=== PATIENT | male | born 1990 | race Caucasian/White ===

== ENCOUNTER 2018-09-22 10:13 | Emergency (ER) | payer SELFPAY ==
--- NOTE | 2018-09-22 12:30 | ER ---
Nurse's Notes [facility] Name: Yoni Collazo Age: 28 yrs Sex: Male : 1990 Arrival Date: 09/22/2018 Time: 10:19 Bed 9 Private MD: None, None Diagnosis: Hordeolum (externum) (internum) of eyelid Presentation: 09/22 10:29 Presenting complaint: Patient states: Reports right eye swelling and discomfort that aj started last night. Patient reports waking this morning with "crust" on eyelid. Denied injury or trauma. Transition of care: patient was not received from another setting of care. Onset of symptoms was September 21, 2018. Risk Assessment: Do you want to hurt yourself or someone else? Patient reports no desire to harm self or others. Initial Sepsis Screen: Does the patient meet any 2 criteria? No. Patient's initial sepsis screen is negative. Does the patient have a suspected source of infection? No. Patient's initial sepsis screen is negative. Care prior to arrival: None. 10:29 Method Of Arrival: Ambulatory 10:29 Acuity: TAVARES 4 Triage Assessment: 10:30 General: Appears in no apparent distress. comfortable, Behavior is calm, cooperative, aj appropriate for age. Pain: Complains of pain in right eye. EENT: Sclera/Cornea are reddened in outer aspect of conjuctiva of right eye Reports pain in right eye. Neuro: Level of Consciousness is awake, alert, obeys commands, Oriented to person, place, time, situation, Appropriate for age. Respiratory: Airway is patent Respiratory effort is even, unlabored, Respiratory pattern is regular, symmetrical. Derm: Skin is intact, is healthy with good turgor, Skin is pink, warm \\T\\ dry. normal. Historical: - Allergies: 10:30 No Known Allergies; aj - Home Meds: 10:30 None [Active]; aj - PMHx: 10:30 None; aj - PSHx: 10:30 None; aj - Immunization history:: Adult Immunizations up to date. - Social history:: Smoking status: Patient uses tobacco products, smokes one pack cigarettes per day. - Ebola Screening: : Patient negative for fever greater than or equal to 101.5 degrees Fahrenheit, and additional compatible Ebola Virus Disease symptoms Patient denies exposure to infectious person Patient denies travel to an Ebola-affected area in the 21 days before illness onset No symptoms or risks identified at this time. Screenin:49 Abuse screen: Denies threats or abuse. Denies injuries from another. Nutritional iw screening: No deficits noted. Tuberculosis screening: No symptoms or risk factors identified. Fall Risk None identified. Assessment: 11:00 General: Appears in no apparent distress. Behavior is calm, cooperative. Neuro: Level iw of Consciousness is awake, alert, obeys commands, Oriented to person, place, time, situation, Moves all extremities. Full function. Cardiovascular: Capillary refill < 3 seconds in bilateral fingers Patient's skin is warm and dry. Respiratory: Respiratory effort is even, unlabored, Respiratory pattern is regular, symmetrical. EENT: Eyes Lid(s) w/ stye noted right upper eyelid. Derm: Skin is intact, is healthy with good turgor. Musculoskeletal: Range of motion: intact in all extremities. Vital Signs: 10:30 BP 106 / 59; Pulse 89; Resp 17; Temp 98.0(O); Pulse Ox 99% on R/A; Weight 58.97 kg; aj Height 5 ft. 8 in. (172.72 cm) (R); 10:30 Body Mass Index 19.77 (58.97 kg, 172.72 cm) aj ED Course: 10:19 Patient arrived in ED. mr 10:19 None, None is Private Physician. mr 10:30 Triage completed. aj 10:30 Arm band placed on left wrist. Patient placed in waiting room, Patient notified of wait aj time. 11:00 Patient has correct armband on for positive identification. iw 12:05 Debi Martínez, MATTIE is Primary Nurse. iw 12:15 Booker Rajput PA is PHCP. jmm 12:15 Vidal Napoles MD is Attending Physician. jmm 12:29 Luis Wilkinson MD is Referral Physician. m 12:40 No provider procedures requiring assistance completed. Patient did not have IV access iw during this emergency room visit. Administered Medications: No medications were administered Outcome: 12:29 Discharge ordered by . jmm 12:40 Discharged to home ambulatory, with family. iw 12:40 Condition: good 12:40 Discharge instructions given to patient, family, Instructed on discharge instructions, follow up and referral plans. medication usage, Demonstrated understanding of instructions, follow-up care, medications, Prescriptions given X 1. 12:41 Patient left the ED. iw Signatures: Aria Terrell RN RN aj Mickail, Joel, PA PA jmm Rivera, Mary mr Williams, Irene, RN RN iw
--- NOTE | 2018-09-22 12:31 | EDPHYS ---
Physician Documentation [facility] Name: Yoni Collazo Age: 28 yrs Sex: Male : 1990 Arrival Date: 09/22/2018 Time: 10:19 Bed 9 Private MD: None, None ED Physician Vidal Napoles HPI: 09/22 12:27 This 28 yrs old Male presents to ER via Ambulatory with complaints of Eye jmm Swelling. 12:27 to the right eye. Onset: The symptoms/episode began/occurred gradually. This is a 28 jmm year old male with no chronic medical conditions that presents to the ED with right eyelid swelling beginning yesterday. Denies change in vision. Denies fever. Historical: - Allergies: 10:30 No Known Allergies; aj - Home Meds: 10:30 None [Active]; aj - PMHx: 10:30 None; aj - PSHx: 10:30 None; aj - Immunization history:: Adult Immunizations up to date. - Social history:: Smoking status: Patient uses tobacco products, smokes one pack cigarettes per day. - Ebola Screening: : Patient negative for fever greater than or equal to 101.5 degrees Fahrenheit, and additional compatible Ebola Virus Disease symptoms Patient denies exposure to infectious person Patient denies travel to an Ebola-affected area in the 21 days before illness onset No symptoms or risks identified at this time. ROS: 12:27 Constitutional: Negative for fever, chills, and weight loss. jmm 12:27 Cardiovascular: Negative for chest pain, palpitations, and edema, Respiratory: Negative for shortness of breath, cough, wheezing, and pleuritic chest pain. 12:27 Eyes: Positive for redness, swelling. 12:27 All other systems are negative. Exam: 12:27 Constitutional: This is a well developed, well nourished patient who is awake, alert, jmm and in no acute distress. Head/Face: atraumatic. 12:27 Chest/axilla: Normal chest wall appearance and motion. Cardiovascular: Regular rate and rhythm. No edema appreciated Respiratory: Normal respirations, no respiratory distress appreciated Back: Normal ROM Skin: General appearance color normal MS/ Extremity: Moves all extremities, no obvious deformities appreciated, no edema noted to the lower extremities Neuro: Awake and alert, normal gait Psych: Behavior is normal, Mood is normal, Patient is cooperative and pleasant 12:27 Eyes: Extraocular movements: intact throughout, Conjunctiva: normal, Anterior chamber: normal, no hyphema, Lids and lashes: edema, of the right eye, erythema, stye, seen on the right lid. Vital Signs: 10:30 BP 106 / 59; Pulse 89; Resp 17; Temp 98.0(O); Pulse Ox 99% on R/A; Weight 58.97 kg; aj Height 5 ft. 8 in. (172.72 cm) (R); 10:30 Body Mass Index 19.77 (58.97 kg, 172.72 cm) aj MDM: 12:26 Patient medically screened. [facility] 12:27 Data reviewed: vital signs, nurses notes. Data interpreted: Pulse oximetry: on room air jm is 99 %. Interpretation: normal. Counseling: I had a detailed discussion with the patient and/or guardian regarding: the historical points, exam findings, and any diagnostic results supporting the discharge/admit diagnosis, the need for outpatient follow up, to return to the emergency department if symptoms worsen or persist or if there are any questions or concerns that arise at home. Administered Medications: No medications were administered Disposition: 13:21 Co-signature as Attending Physician, Vidal Napoles MD I agree with the assessment and kdr plan of care. Disposition: 09/22/18 12:29 Discharged to Home. Impression: Hordeolum (externum) (internum) of eyelid. - Condition is Stable. - Discharge Instructions: Stye. - Prescriptions for Erythromycin 5 mg/gram (0.5 %) Ophthalmic Ointment - apply 1 centimeter by OPHTHALMIC route 2-3 times daily for 7 days; 1 tube. - Medication Reconciliation Form, Thank You Letter, Antibiotic Education, Prescription Opioid Use form. - Follow up: Private Physician; When: 2 - 3 days; Reason: Recheck today's complaints, Continuance of care, Re-evaluation by your physician. Follow up: Luis Wilkinson MD; When: 1 - 2 days; Reason: Recheck today's complaints, Continuance of care, Re-evaluation by your physician. Signatures: Aria Terrell RN RN aj Rittger, Kevin, MD MD kdr Mickail, Joel, PA PA [facility] Debi Martínez RN RN iw Corrections: (The following items were deleted from the chart) 12:41 12:29 09/22/2018 12:29 Discharged to Home. Impression: Hordeolum (externum) (internum) iw of eyelid. Condition is Stable. Forms are Medication Reconciliation Form, Thank You Letter, Antibiotic Education, Prescription Opioid Use. Follow up: Private Physician; When: 2 - 3 days; Reason: Recheck today's complaints, Continuance of care, Re-evaluation by your physician. Follow up: Luis Wilkinson; When: 1 - 2 days; Reason: Recheck today's complaints, Continuance of care, Re-evaluation by your physician. apple
== END 2018-09-22 12:41 | disposition home or self-care (01) ==
LOC: ER 10:13
DX: H00.023 Hordeolum internum right eye, unspecified eyelid (principal); F17.210 Nicotine dependence, cigarettes, uncomplicated
CPT/HCPCS: 99282

== ENCOUNTER 2018-11-24 14:13 | Emergency (ER) | payer OTHER, SELFPAY ==
[2018-11-24 15:27] LABS: Absolute Lymphocytes (CBC) 2.2 K/uL (0.7-4.9); Absolute Monocytes 0.8 K/uL (0.1-1.3); Absolute Neutrophil 3.9 K/uL (1.8-8.0); Basophils % 1.1 % (0-1.3); Eosinophils % 5.1 % (0-4.4); Hematocrit 46.1 % (39.6-49.0); Lymphocytes % 30.3 % (15.3-44.8); Monocytes % 10.5 % (3.3-12.3); RBC Red Blood Cell Count 5.16 M/uL (4.33-5.43)
[2018-11-24 15:42] LABS: Albumin 4.4 g/dL (3.4-5.0); Bilirubin Direct 0.1 mg/dL (0-0.2); Bilirubin Total 0.5 mg/dL (0.2-1.0); Potassium 3.7 mmol/L (3.5-5.1); Protein, Total 7.6 g/dL (6.4-8.2)
--- NOTE | 2018-11-24 15:55 | EDPHYS ---
Physician Documentation [facility] Name: Yoni Collazo Age: 28 yrs Sex: Male : 1990 Arrival Date: 11/24/2018 Time: 14:17 Bed 9 Private MD: None, None ED Physician Ricky Yan HPI: 11/24 15:10 This 28 yrs old Male presents to ER via Ambulatory with complaints of rn Abdominal Pain. 15:10 The patient presents with abdominal pain. Onset: The symptoms/episode began/occurred 2 rn hour(s) ago. The symptoms do not radiate. Associated signs and symptoms: none. Pertinent negatives: nausea and vomiting, anorexia, blood in stools, chest pain, constipation, diarrhea, dysuria, fever, hematuria, shortness of breath. The symptoms are described as achy, crampy, intermittent. Modifying factors: The symptoms are alleviated by nothing, the symptoms are aggravated by nothing. Severity of pain: At its worst the pain was mild in the emergency department the pain has improved. The patient has experienced similar episodes in the past. Reports abdominal pain, intermittent, began again 2 hours ago, no fever/vomiting/diarrhea, reports has had multiple times in past, has been evaluated in ER for it, never could find answer.. Historical: - Allergies: 14:37 No Known Allergies; hb - Home Meds: 14:37 None [Active]; hb - PMHx: 14:37 None; hb - PSHx: 14:37 None; hb - Immunization history:: Adult Immunizations up to date. - Social history:: Smoking status: Patient uses tobacco products, smokes one pack cigarettes per day. - Ebola Screening: : No symptoms or risks identified at this time. - Family history:: not pertinent. - Hospitalizations: : No recent hospitalization is reported. ROS: 15:10 Constitutional: Negative for fever, chills, and weight loss, Eyes: Negative for injury, rn pain, redness, and discharge, Cardiovascular: Negative for chest pain, palpitations, and edema, Respiratory: Negative for shortness of breath, cough, wheezing, and pleuritic chest pain, Abdomen/GI: Negative for nausea, vomiting, diarrhea, and constipation, MS/Extremity: Negative for injury and deformity, Skin: Negative for injury, rash, and discoloration, Neuro: Negative for headache, weakness, numbness, tingling, and seizure. Exam: 15:10 Constitutional: This is a well developed, well nourished patient who is awake, alert, rn and in no acute distress. Head/Face: Normocephalic, atraumatic. Eyes: Pupils equal round and reactive to light, extra-ocular motions intact. Lids and lashes normal. Conjunctiva and sclera are non-icteric and not injected. Cornea within normal limits. Periorbital areas with no swelling, redness, or edema. Abdomen/GI: soft, non-tender Skin: Warm, dry with normal turgor. Normal color with no rashes, no lesions, and no evidence of cellulitis. MS/ Extremity: Pulses equal, no cyanosis. Neurovascular intact. Full, normal range of motion. Equal circumference. Neuro: Awake and alert, GCS 15, oriented to person, place, time, and situation. Cranial nerves II-XII grossly intact. Motor strength 5/5 in all extremities. Sensory grossly intact. Cerebellar exam normal. Normal gait. Vital Signs: 14:36 BP 109 / 71; Pulse 98; Resp 16; Temp 99.8; Pulse Ox 98% on R/A; Pain 7/10; hb MDM: 14:50 Patient medically screened. rn 15:52 Differential diagnosis: gastritis, non-specific abd pain, nonspecific abd pain, viral rn syndrome given children with rsv. Data reviewed: vital signs, nurses notes, lab test result(s), and as a result, I will discharge patient. 15:53 Counseling: I had a detailed discussion with the patient and/or guardian regarding: the rn historical points, exam findings, and any diagnostic results supporting the discharge/admit diagnosis, lab results, the need for outpatient follow up, to return to the emergency department if symptoms worsen or persist or if there are any questions or concerns that arise at home. Special discussion: I discussed with the patient/guardian in detail that at this point there is no indication for admission to the hospital. It is understood, however, that if the symptoms persist or worsen the patient needs to return immediately for re-evaluation. 11/24 15:00 Order name: Basic Metabolic Panel; Complete Time: 15:44 rn 11/24 15:00 Order name: CBC with Diff rn 11/24 15:00 Order name: Hepatic Function; Complete Time: 15:44 rn 11/24 15:00 Order name: Lipase; Complete Time: 15:44 rn 11/24 15:00 Order name: IV Saline Lock; Complete Time: 15:15 rn 11/24 15:00 Order name: Labs collected and sent; Complete Time: 15:15 rn Administered Medications: No medications were administered Disposition: 11/24/18 15:54 Discharged to Home. Impression: Unspecified abdominal pain. - Condition is Stable. - Discharge Instructions: Abdominal Pain, Adult. - Medication Reconciliation Form, Thank You Letter, Antibiotic Education, Prescription Opioid Use form. - Follow up: Private Physician; When: As needed; Reason: Recheck today's complaints, Re-evaluation by your physician. - Problem is new. - Symptoms have improved. Signatures: Dispatcher [employer] EDMS Ricky Yan MD MD rn Smirch, Shelby, RN RN ss Baxter, Heather, RN RN Corrections: (The following items were deleted from the chart) 16:07 15:54 11/24/2018 15:54 Discharged to Home. Impression: Unspecified abdominal pain. ss Condition is Stable. Forms are Medication Reconciliation Form, Thank You Letter, Antibiotic Education, Prescription Opioid Use. Follow up: Private Physician; When: As needed; Reason: Recheck today's complaints, Re-evaluation by your physician. Problem is new. Symptoms have improved. rn
--- NOTE | 2018-11-24 15:55 | ER ---
Nurse's Notes [facility] Name: Yoni Collazo Age: 28 yrs Sex: Male : 1990 Arrival Date: 11/24/2018 Time: 14:17 Bed 9 Private MD: None, None Diagnosis: Unspecified abdominal pain Presentation: 11/24 14:35 Presenting complaint: Patient states: Right sided abdominal pain x 2-3 hrs. Transition hb of care: patient was not received from another setting of care. Onset of symptoms was November 24, 2018. Risk Assessment: Do you want to hurt yourself or someone else? Patient reports no desire to harm self or others. Care prior to arrival: None. 14:35 Method Of Arrival: Ambulatory hb 14:35 Acuity: TAVARES 3 hb 16:07 Initial Sepsis Screen: Does the patient meet any 2 criteria? No. Patient's initial ss sepsis screen is negative. Does the patient have a suspected source of infection? No. Patient's initial sepsis screen is negative. Historical: - Allergies: 14:37 No Known Allergies; hb - Home Meds: 14:37 None [Active]; hb - PMHx: 14:37 None; hb - PSHx: 14:37 None; hb - Immunization history:: Adult Immunizations up to date. - Social history:: Smoking status: Patient uses tobacco products, smokes one pack cigarettes per day. - Ebola Screening: : No symptoms or risks identified at this time. - Family history:: not pertinent. - Hospitalizations: : No recent hospitalization is reported. Screenin:15 Abuse screen: Denies threats or abuse. Denies injuries from another. Nutritional ss screening: No deficits noted. Tuberculosis screening: No symptoms or risk factors identified. Never had TB. Fall Risk None identified. Assessment: 15:15 General: Appears in no apparent distress. comfortable, Behavior is calm, cooperative. ss Pain: Complains of pain in abdomen Pain currently is 0 out of 10 on a pain scale. at worst was 7 out of 10 on a pain scale. Neuro: Level of Consciousness is awake, alert, obeys commands, Oriented to person, place, time, situation. Cardiovascular: Capillary refill < 3 seconds is brisk in bilateral fingers. Respiratory: Airway is patent Respiratory effort is even, unlabored, Respiratory pattern is regular, symmetrical. GI: Abdomen is flat, non-distended, Bowel sounds present X 4 quads. Abd is soft and non tender X 4 quads. Patient currently denies diarrhea, vomiting. : No signs and/or symptoms were reported regarding the genitourinary system. Denies burning with urination, urinary frequency. EENT: Nares are clear. Derm: Skin is intact, is healthy with good turgor, Skin is dry, Skin is pink, warm \T\ dry. normal. Musculoskeletal: Circulation, motion, and sensation intact. Range of motion: intact in all extremities, Swelling absent. Vital Signs: 14:36 BP 109 / 71; Pulse 98; Resp 16; Temp 99.8; Pulse Ox 98% on R/A; Pain 7/10; hb ED Course: 14:17 Patient arrived in ED. sb2 14:17 None, None is Private Physician. sb2 14:36 Triage completed. hb 14:36 Arm band placed on. hb 14:50 Ricky Yan MD is Attending Physician. rn 15:15 Arlene Almanzar, MATTIE is Primary Nurse. ss 15:15 Patient has correct armband on for positive identification. Bed in low position. Call ss light in reach. 15:15 Inserted saline lock: 20 gauge in right antecubital area, using aseptic technique. ss Blood collected. 16:05 No provider procedures requiring assistance completed. IV discontinued, intact, ss bleeding controlled, No redness/swelling at site. Pressure dressing applied. Administered Medications: No medications were administered Outcome: 15:54 Discharge ordered by . rn 16:05 Discharged to home ambulatory, with family. ss 16:05 Condition: stable 16:05 Discharge instructions given to patient, family, Instructed on discharge instructions, follow up and referral plans. Demonstrated understanding of instructions, follow-up care. 16:07 Patient left the ED. ss Signatures: Ricky Yan MD MD rn Smirch, Shelby, RN RN Abby Arango RN RN Talia Chao sb2
[2018-11-24 16:14] LABS: Blood Morphology Comment NOT SEEN (NOT SEEN); Platelet Estimate ADEQ; Platelets, Giant PRESENT; Urine White Blood Cell Casts OK
== END 2018-11-24 16:07 | disposition home or self-care (01) ==
LOC: ER 14:13
DX: R10.9 Unspecified abdominal pain (principal); F17.210 Nicotine dependence, cigarettes, uncomplicated
CPT/HCPCS: 36415; 80048; 80076; 83690; 85025; 99283

== ENCOUNTER 2019-06-20 04:47 | Emergency (ER) | payer OTHER ==
[2019-06-20] MEDS ORDERED: TETANUS & DIPHTHERIA TOX,ADULT 0.5 ML VIAL ONE (05:38)
[2019-06-20] MEDS ORDERED: HYDROCODONE/APAP 5/325 MG TAB ONE (06:39)
--- NOTE | 2019-06-20 07:33 | EDPHYS ---
Physician Documentation [facility] Name: Yoni Collazo Age: 29 yrs Sex: Male : 1990 Arrival Date: 06/20/2019 Time: 04:49 Bed 8 Private MD: ED Physician Phoenix Quintanilla HPI: 06/20 06:29 This 29 yrs old Male presents to ER via Ambulatory with complaints of Foot snw Injury. 06:29 The patient presents with pain, a puncture wound, unknown. The complaints affect the snw right fourth toe. Context: The problem was sustained outdoors, resulted from a mis-step, the patient can partially bear weight, the patient is able to ambulate. Onset: The symptoms/episode began/occurred suddenly, yesterday. Associated signs and symptoms: Pertinent positives: pain and mild erythema. Severity of symptoms: At their worst the symptoms were moderate. The patient has not experienced similar symptoms in the past. It is unknown whether or not the patient has recently seen a physician. Historical: - Allergies: 05:06 No Known Allergies; bb - Home Meds: 05:06 None [Active]; bb - PMHx: 05:06 None; bb - PSHx: 05:06 hypospadias repair; bb - Immunization history:: Adult Immunizations up to date. - Social history:: Smoking status: Patient uses tobacco products, smokes one pack cigarettes per day. - Ebola Screening: : No symptoms or risks identified at this time. ROS: 06:13 Constitutional: Negative for fever, chills, and weight loss, Eyes: Negative for injury, snw pain, redness, and discharge, ENT: Negative for injury, pain, and discharge, Neck: Negative for injury, pain, and swelling, Cardiovascular: Negative for chest pain, palpitations, and edema, Respiratory: Negative for shortness of breath, cough, wheezing, and pleuritic chest pain, Abdomen/GI: Negative for abdominal pain, nausea, vomiting, diarrhea, and constipation, Back: Negative for injury and pain, : Negative for injury, bleeding, discharge, and swelling, MS/Extremity: Negative for injury and deformity, Neuro: Negative for headache, weakness, numbness, tingling, and seizure, Psych: Negative for depression, anxiety, suicide ideation, homicidal ideation, and hallucinations. 06:13 Skin: Positive for puncture, of the bottom of foot. Exam: 06:12 Constitutional: This is a well developed, well nourished patient who is awake, alert, snw and in no acute distress. Head/Face: Normocephalic, atraumatic. Eyes: Pupils equal round and reactive to light, extra-ocular motions intact. Lids and lashes normal. Conjunctiva and sclera are non-icteric and not injected. Cornea within normal limits. Periorbital areas with no swelling, redness, or edema. ENT: Nares patent. No nasal discharge, no septal abnormalities noted. Tympanic membranes are normal and external auditory canals are clear. Oropharynx with no redness, swelling, or masses, exudates, or evidence of obstruction, uvula midline. Mucous membranes moist. Neck: Trachea midline, no thyromegaly or masses palpated, and no cervical lymphadenopathy. Supple, full range of motion without nuchal rigidity, or vertebral point tenderness. No Meningismus. Chest/axilla: Normal chest wall appearance and motion. Nontender with no deformity. No lesions are appreciated. Cardiovascular: Regular rate and rhythm with a normal S1 and S2. No gallops, murmurs, or rubs. Normal PMI, no JVD. No pulse deficits. Respiratory: Lungs have equal breath sounds bilaterally, clear to auscultation and percussion. No rales, rhonchi or wheezes noted. No increased work of breathing, no retractions or nasal flaring. Abdomen/GI: Soft, non-tender, with normal bowel sounds. No distension or tympany. No guarding or rebound. No evidence of tenderness throughout. Back: No spinal tenderness. No costovertebral tenderness. Full range of motion. MS/ Extremity: Pulses equal, no cyanosis. Neurovascular intact. Full, normal range of motion. Neuro: Awake and alert, GCS 15, oriented to person, place, time, and situation. Cranial nerves II-XII grossly intact. Motor strength 5/5 in all extremities. Sensory grossly intact. Cerebellar exam normal. Normal gait. Psych: Awake, alert, with orientation to person, place and time. Behavior, mood, and affect are within normal limits. 06:12 Skin: Appearance: normal except for affected area, injury, puncture(s), that are deep, of the ball of right foot- distally between third and fourth toes. Vital Signs: 05:06 BP 132 / 74; Pulse 84; Resp 16 S; Temp 98.3(O); Pulse Ox 98% on R/A; Weight 59.87 kg bb (R); Height 5 ft. 7 in. (170.18 cm) (R); Pain 3/10; 05:29 BP 112 / 68; Pulse 72; Resp 16; Pulse Ox 97% on R/A; ak1 06:14 BP 111 / 74; Pulse 73; Resp 16; Pulse Ox 97% on R/A; ak1 06:30 BP 106 / 72; Pulse 64; Resp 16; Pulse Ox 99% on R/A; jb4 07:16 BP 99 / 71 Supine; Pulse 57; Resp 17; Pulse Ox 98% on R/A; Pain 2/10; tw2 08:17 BP 104 / 73; Pulse 61; Resp 17; Pulse Ox 99% on R/A; tw2 05:06 Body Mass Index 20.67 (59.87 kg, 170.18 cm) bb MDM: 06:02 Patient medically screened. snw 07:08 Data reviewed: vital signs, nurses notes. Data interpreted: Pulse oximetry: on room air snw is 99 %. Interpretation: normal. Counseling: I had a detailed discussion with the patient and/or guardian regarding: the historical points, exam findings, and any diagnostic results supporting the discharge/admit diagnosis, radiology results. Awaiting: US. 06/20 05:28 Order name: Foot Right 3 View XRAY gs 06/20 06:34 Order name: US Extrmty Nonvasular Limited snw 06/20 07:31 Order name: PO challenge; Complete Time: 07:52 snw 06/20 07:31 Order name: Wound dressing; Complete Time: 07:55 snw 06/20 07:31 Order name: Post-op shoe; Complete Time: 08:17 snw Administered Medications: 05:38 Drug: Tetanus-Diphtheria Toxoid Adult 0.5 ml {Human Resources Office Assistant: [employer]. Exp: jb4 02/17/2021. Lot #: [id number]. } Route: IM; Site: right deltoid; 06:23 Follow up: Response: No adverse reaction [facility] 06:38 Drug: [place] 5 mg-325 mg 1 tabs {Note: Rass score 0 prior to administration..} Route: PO;jb4 07:18 Follow up: Response: No adverse reaction; Pain is decreased; RASS: Alert and Calm (0) tw2 07:40 Drug: Doxycycline 100 mg Route: PO; tw2 08:17 Follow up: Response: No adverse reaction tw2 07:52 Drug: Hibiclens 4 % 1 application Route: Topical; Site: wound; tw2 Disposition: 06/20/19 07:32 Discharged to Home. Impression: Puncture wound without foreign body of foot. - Condition is Stable. - Discharge Instructions: Puncture Wound, Wound Infection, VIS, Tetanus, Diphtheria (Td) - [facility] [place], Wound Care. - Prescriptions for Doxycycline Hyclate 100 mg Oral Tablet - take 1 tablet by ORAL route every 12 hours; 20 tablet. Diclofenac Sodium 75 mg Oral Tablet Sustained Release - take 1 tablet by ORAL route 2 times per day; 30 tablet. - Medication Reconciliation Form, Thank You Letter, Antibiotic Education, Prescription Opioid Use, Work release form form. - Follow up: Private Physician; When: 2 - 3 days; Reason: Recheck today's complaints, Continuance of care, Re-evaluation by your physician. Follow up: Emergency Department; When: As needed; Reason: Worsening of condition. Addendum: 06/22/2019 03:23 Co-signature as Attending Physician, Phoenix Quintanilla MD. g s Signatures: Dispatcher [employer] EDMS Sana Brady, FOREIGN BROADCAST SPECIALIST-C FOREIGN BROADCAST SPECIALIST-Csnw Siomara Michaels, RN RN bb Kasey Allen RN RN tw2 Feliz Christy RN RN jb4 Phoenix Quintanilla MD MD Brenda Mchugh RN ak1 Corrections: (The following items were deleted from the chart) 06/20 08:18 07:32 06/20/2019 07:32 Discharged to Home. Impression: Puncture wound without foreign tw2 body of foot. Condition is Stable. Forms are Work release form, Medication Reconciliation Form, Thank You Letter, Antibiotic Education, Prescription Opioid Use. Follow up: Private Physician; When: 2 - 3 days; Reason: Recheck today's complaints, Continuance of care, Re-evaluation by your physician. Follow up: Emergency Department; When: As needed; Reason: Worsening of condition. snw
--- NOTE | 2019-06-20 07:33 | ER ---
Nurse's Notes [facility] Name: Yoni Collazo Age: 29 yrs Sex: Male : 1990 Arrival Date: 06/20/2019 Time: 04:49 Bed 8 Private MD: Diagnosis: Puncture wound without foreign body of foot Presentation: 06/20 05:04 Presenting complaint: Patient states: he jumped out of the pool yesterday and thinks he bb has something in his foot between the 3rd and 4th toe pain to foot is getting worse he can only put weight in his heel. Transition of care: patient was not received from another setting of care. Onset of symptoms was June 19, 2019. Risk Assessment: Do you want to hurt yourself or someone else? Patient reports no desire to harm self or others. Initial Sepsis Screen: Does the patient meet any 2 criteria? No. Patient's initial sepsis screen is negative. Does the patient have a suspected source of infection? No. Patient's initial sepsis screen is negative. Care prior to arrival: None. 05:04 Method Of Arrival: Ambulatory bb 05:04 Acuity: TAVARES 4 bb Historical: - Allergies: 05:06 No Known Allergies; bb - Home Meds: 05:06 None [Active]; bb - PMHx: 05:06 None; bb - PSHx: 05:06 hypospadias repair; bb - Immunization history:: Adult Immunizations up to date. - Social history:: Smoking status: Patient uses tobacco products, smokes one pack cigarettes per day. - Ebola Screening: : No symptoms or risks identified at this time. Screenin:07 Abuse screen: Denies threats or abuse. Nutritional screening: No deficits noted. jb4 Tuberculosis screening: No symptoms or risk factors identified. Fall Risk Gait- Impaired (20 pts.). Total Sahu Fall Scale indicates No Risk (0-24 pts). Assessment: 05:04 General: Appears in no apparent distress. uncomfortable, Behavior is calm, cooperative, jb4 appropriate for age. Pain: Complains of pain in right third toe and right fourth toe Pain does not radiate. Pain currently is 2 out of 10 on a pain scale. at worst was 10 out of 10 on a pain scale. Pain began 1 day ago. Is continuous, Alleviated by rest, Aggravated by increased activity. Neuro: Level of Consciousness is awake, alert, obeys commands, Oriented to person, place, time, situation. Cardiovascular: Patient's skin is warm and dry. Respiratory: Airway is patent Respiratory effort is even, unlabored, Respiratory pattern is regular, symmetrical. GI: No deficits noted. No signs and/or symptoms were reported involving the gastrointestinal system. : No deficits noted. No signs and/or symptoms were reported regarding the genitourinary system. EENT: No deficits noted. No signs and/or symptoms were reported regarding the EENT system. Derm: Skin Puncture injury noted between the 3rd and 4th right toes. Skin is pink, warm \\T\\ dry. Musculoskeletal: Circulation, motion, and sensation intact. Range of motion: intact in all extremities. Injury Description: Puncture sustained to between 3rd and 4th right toe was sustained 12-24 hours ago. 05:53 Reassessment: Patient appears in no apparent distress at this time. Patient and/or jb4 family updated on plan of care and expected duration. Pain level reassessed. Patient is alert, oriented x 3, equal unlabored respirations, skin warm/dry/pink. 06:38 Reassessment: Patient appears in no apparent distress at this time. Patient and/or jb4 family updated on plan of care and expected duration. Pain level reassessed. Patient is alert, oriented x 3, equal unlabored respirations, skin warm/dry/pink. 07:16 Reassessment: Patient appears in no apparent distress at this time. Patient and/or tw2 family updated on plan of care and expected duration. Pain level reassessed. Patient is alert, oriented x 3, equal unlabored respirations, skin warm/dry/pink. pt states "the pain is better since they gave me some pain medicine". 08:17 Reassessment: Patient appears in no apparent distress at this time. Patient and/or tw2 family updated on plan of care and expected duration. Pain level reassessed. Patient is alert, oriented x 3, equal unlabored respirations, skin warm/dry/pink. Vital Signs: 05:06 BP 132 / 74; Pulse 84; Resp 16 S; Temp 98.3(O); Pulse Ox 98% on R/A; Weight 59.87 kg bb (R); Height 5 ft. 7 in. (170.18 cm) (R); Pain 3/10; 05:29 BP 112 / 68; Pulse 72; Resp 16; Pulse Ox 97% on R/A; ak1 06:14 BP 111 / 74; Pulse 73; Resp 16; Pulse Ox 97% on R/A; ak1 06:30 BP 106 / 72; Pulse 64; Resp 16; Pulse Ox 99% on R/A; jb4 07:16 BP 99 / 71 Supine; Pulse 57; Resp 17; Pulse Ox 98% on R/A; Pain 2/10; tw2 08:17 BP 104 / 73; Pulse 61; Resp 17; Pulse Ox 99% on R/A; tw2 05:06 Body Mass Index 20.67 (59.87 kg, 170.18 cm) bb ED Course: 04:49 Patient arrived in ED. cl3 05:04 Feliz Christy, RN is Primary Nurse. jb4 05:05 Triage completed. bb 05:06 Arm band placed on Patient placed in an exam room, on a stretcher, on pulse oximetry. bb Family accompanied patient. 05:07 Patient has correct armband on for positive identification. Bed in low position. Call jb4 light in reach. Side rails up X 1. Pulse ox on. NIBP on. 05:27 Phoenix Quintanilla MD is Attending Physician. gs 05:44 X-ray completed. Portable x-ray completed in exam room. Patient tolerated procedure kw well. 05:47 Foot Right 3 View XRAY In Process Unspecified. EDMS 05:53 Warm blanket given. jb4 06:02 Sana Brady FNP-C [facility]. snw 06:02 Phoenix Quintanilla MD is Attending Physician. snw 07:02 Primary Nurse role handed off by Feliz Christy, RN tw2 07:02 Kasey Allen, MATTIE is Primary Nurse. tw2 07:32 US Extrmty Nonvasular Limited In Process Unspecified. EDMS 07:56 Ortho shoe applied to right foot. Wound care: located on right foot was cleaned with em1 Hibiclens, irrigated with normal saline, dressed with 4X4s, Patient tolerated well. 08:17 No provider procedures requiring assistance completed. Patient did not have IV access tw2 during this emergency room visit. Administered Medications: 05:38 Drug: Tetanus-Diphtheria Toxoid Adult 0.5 ml {Skip Tracer: [employer]. Exp: jb4 02/17/2021. Lot #: [id number]. } Route: IM; Site: right deltoid; 06:23 Follow up: Response: No adverse reaction ak1 06:38 Drug: [place] 5 mg-325 mg 1 tabs {Note: Rass score 0 prior to administration..} Route: PO;jb4 07:18 Follow up: Response: No adverse reaction; Pain is decreased; RASS: Alert and Calm (0) tw2 07:40 Drug: Doxycycline 100 mg Route: PO; tw2 08:17 Follow up: Response: No adverse reaction tw2 07:52 Drug: Hibiclens 4 % 1 application Route: Topical; Site: wound; tw2 Outcome: 07:32 Discharge ordered by . snrenee 08:17 Discharged to home ambulatory, with significant other. tw 08:17 Condition: stable 08:17 Discharge instructions given to patient, significant other, Instructed on discharge instructions, follow up and referral plans. medication usage, safety practices, wound care, Demonstrated understanding of instructions, follow-up care, medications, wound care, Prescriptions given X 2. 08:18 Patient left the ED. tw Signatures: Dispatcher [employer] EDMS Sana Brady, VOLUNTEER RECRUITER-C VOLUNTEER RECRUITER-Csnw Siomara Michaels RN RN bb Martinez, Eric emEladia Villegas Amber, RN RN ak1 Kasey Allen RN RN tw2 Feliz Christy RN RN jb4 Phoenix Quintanilla MD MD gs Lewis, Charde 3
[2019-06-20] MEDS ORDERED: DOXYCYCLINE 100 MG CAP PO ONE (07:39)
--- NOTE | 2019-06-20 08:21 | RAD REPORT ---
EXAM DESCRIPTION: RAD - Foot Right 3 View - 06/20/2019 5:50 am CLINICAL HISTORY: POSS FB;Pain COMPARISON: No comparisons FINDINGS: No radiopaque foreign body is evident. No fracture or dislocation seen.
--- NOTE | 2019-06-20 08:37 | RAD REPORT ---
EXAM DESCRIPTION: US - Extremity Nonvascular Limited - 06/20/2019 7:33 am CLINICAL HISTORY: puncture;Pain COMPARISON: No comparisons TECHNIQUE: Real-time sonographic evaluation of the area of interest was performed. FINDINGS: No abnormality is seen in the area of interest.
== END 2019-06-20 08:18 | disposition home or self-care (01) ==
LOC: ER 04:47
DX: S91.134A Puncture wound without foreign body of right lesser toe(s) without damage to nail, initial encounter (principal); F17.210 Nicotine dependence, cigarettes, uncomplicated; Z23 Encounter for immunization
CPT/HCPCS: 76882; 90471; 90714; 99284